=== PATIENT | female | born 1950 | race Asian ===

== ENCOUNTER 2019-03-28 01:02 | Inpatient (IN) | payer OTHER ==
[~2019-03-28] VITALS: Ht 165.1 cm; Wt 68.5 kg
[2019-03-28 01:02] VITALS: BP 147/74
--- NOTE | 2019-03-28 01:02 | NUR ---
68 y/o female biba c/o sob x 30mins. lung sounds are wheezing throughout, productive cough, labored and even breathing. vss. tripoding. heart sounds s1s2 present. pacemaker. a & o x4. on bipap.spo2 100% on bipap. 2 words sentences when getting out of breathe. nka. pmh: htn, copd, asthma, prediabetic, pacemaker.
[2019-03-28] MEDS ORDERED: BLOOD GLUCOSE MONITORING 1 DEV DEV FS STA (01:11)
[2019-03-28] MEDS ORDERED: NACL 0.9% 0 ML IV STA (01:11)
--- NOTE | 2019-03-28 01:13 | NUR ---
placed on bipap 10/5, BUR 12, 40%, tolerating well, spo2 100%, HR 67, Dr. Kennedy aware.
--- NOTE | 2019-03-28 01:30 | NUR ---
EKG PERFORMED AT BEDSIDE
[2019-03-28 02:06] LABS: HEMATOCRIT 45.5 % (36-48); HEMOGLOBIN 14.6 g/dL (12.0-16.0); MEAN CORPUSCULAR HEMOGLOBIN 28 pg (27-31); MEAN CORPUSCULAR HGB CONC 32 g/dL (33-37); MEAN CORPUSCULAR VOLUME 88.2 fL (80-94); PLATELET COUNT (AUTO) 224 K/uL (140-450); RED BLOOD CELL COUNT(AUTO) 5.16 MIL/uL (4.20-5.40); RED CELL DISTRIBUTION WIDTH 14.2 % (11.6-13.7); WHITE BLOOD COUNT (AUTO) 7.2 K/uL (4.8-10.8)
[2019-03-28 02:16] LABS: APPEARANCE,URINE CLEAR (CLEAR); BILIRUBIN,URINE NEGATIVE (NEGATIVE); BLOOD, URINE NEGATIVE (NEGATIVE); COLOR,URINE YELLOW (YELLOW); LEUKOCYTE ESTERASE ,URINE NEGATIVE (NEGATIVE); NITRITE, URINE NEGATIVE (NEGATIVE); UGLUCOSE NEGATIVE (NEGATIVE)
[2019-03-28 02:26] LABS: PROTHROMBIN TIME 8.8 secs (10.8-13.4)
[2019-03-28 02:28] LABS: ALBUMIN 4.1 g/dL (3.4-5.0); ANION GAP 16.2 (8-16); CARBON DIOXIDE 27.5 mmol/L (21-32); CREATININE 0.9 mg/dL (0.6-1.3); POTASSIUM 3.7 mmol/L (3.5-5.1); TOTAL BILIRUBIN 0.4 mg/dL (0.0-1.0)
[2019-03-28 02:29] LABS: EOSINOPHILS % (MANUAL) 16 % (0-4); LYMPHOCYTES % (MANUAL) 26 % (20-46); MONOCYTES % (MANUAL) 6 % (5-12)
[2019-03-28] MEDS ORDERED: ALBU1.25 NEB (02:37)
[2019-03-28] MEDS ORDERED: LOSA100T51 PO (02:37)
[2019-03-28] MEDS ORDERED: AMLO5TAB PO (02:37)
[2019-03-28] MEDS ORDERED: CARV12.5 PO (02:37)
[2019-03-28] MEDS ORDERED: ASPI-1718 PO (02:37)
[2019-03-28] MEDS ORDERED: ALBUTEROL 0.083% 2.5 MG/3 ML NEBU INH ONE (04:20)
[2019-03-28] MEDS ORDERED: MAG SULF 2000 MG/WATER PREMIX 50 ML IV ONE (04:20)
[2019-03-28] MEDS ORDERED: DEXAMETHASONE 10 MG/ML VIAL IVP ONE (04:20)
[2019-03-28] MEDS ORDERED: ONDANSETRON 4 MG/2 ML VIAL IVP PRN (04:55)
[2019-03-28] MEDS ORDERED: DEXTROSE 50% 50 ML SYR IVP PRN (05:45)
[2019-03-28] MEDS ORDERED: ALBUTEROL SULFATE/IPRATROPIU 3 ML SOL IH PRN (05:45)
--- NOTE | 2019-03-28 05:55 | NUR ---
Patient will be admitted to care of dr. negro. Admited to tele. Will go to room 123b. Belongings list completed. Report to reji childress.
[2019-03-28 06:05] VITALS: BP 128/71
--- NOTE | 2019-03-28 06:05 | NUR ---
BROUGHT IN FROM THE [facility]IA [facility] WITH AN ADMITTING DIAGNOSIS OF COPD EXACERBATION,RESPIRATORY FAILURE UNDER THE SERVICE OF . PLACED IN ROOM 123-B. PT. IS ALERT, ORIENTED. AFEBRILE, NOT IN ACUTE DISTRESS. DENIES PAIN AND VERBALIZED RELIEF OF SOB. SALINE LOCK TO THE RIGHT FA # 20 INTACT. SAO2=95% ON ROOM AIR. SINUS RHYTHM WITH 1 DEGREE AV BLOCK @ 60'S ON THE MONITOR. VS STABLE, WILL CONTINUE TO MONITOR. NEEDS ATTENDED.
[2019-03-28] MEDS: NACL 0.9% 1,000 ML IV SCH (06:12)
[2019-03-28] MEDS: BLOOD GLUCOSE MONITORING 1 DEV DEV FS SCH ×4 (06:28→21:17)
--- NOTE | 2019-03-28 06:28 | NUR ---
FINGERSTICK BLOOD SUGAR QIXGB=[id number]. NO INSULIN COVERAGE NEEDED.
[2019-03-28] MEDS: ALBUTEROL SULFATE/IPRATROPIU 3 ML SOL IH SCH ×3 (06:50→18:44)
--- NOTE | 2019-03-28 06:55 | NUR ---
BREATHING TREATMENT BEING GIVEN BY RT. MRSA SWAB COLLECTED AND SENT TO THE LAB.
--- NOTE | 2019-03-28 07:23 | NUR ---
ENDORSED CARE TO INGRIS PANCHAL.
--- NOTE | 2019-03-28 07:30 | NUR ---
RECEIVED REPORT FROM ARMINDA VILLATORO. PATIENT IS A NEW ADMIT. PATIENT IS AWAKE, ALERT AND ORIENTED X4. IV INTACT AND PATENT TO RIGHT FOREARM WITH IV NS 50ML/HR. CARE PLAN DISCUSSED WITH PATIENT. BED IN LOW POSITION. SAFETY MEASURES IN PLACE. CALL LIGHT WITHIN REACH. WILL CONTINUE TO MONITOR.
[2019-03-28 08:00] VITALS: BP 129/76
[2019-03-28 08:25] LABS: CHOL/HDL RATIO 5.9 (1-4.5); MAGNESIUM 1.8 mg/dL (1.8-2.4); PHOSPHORUS 4.5 mg/dL (2.5-4.9); THYROID STIMULATING HORMONE 3.96 uIU/mL (0.34-3.74)
[2019-03-28 08:56] LABS: BARBITURATE, URINE NEG. ng/ml (NEG <=200); BENZODIAZEPINE, URINE NEG. ng/mL (NEG <=200); CANNABINOID, URINE NEG. ng/mL (NEG <=50); COCAINE, URINE NEG. ng/mL (NEG <=300); OPIATE, URINE NEG. ng/mL (NEG <=2000); PHENCYCLIDINE SCREEN,URINE NEG. ng/mL (NEG <=25)
[2019-03-28] MEDS ORDERED: methylPREDNISolone SS 125 MG/2 ML VIAL IVP SCH (09:00)
[2019-03-28] MEDS ORDERED: NON-FORMULARY ITEM (Losartan Potassium 1 TAB) PO SCH (09:00)
[2019-03-28] MEDS: LOSARTAN 50 MG TAB PO SCH (09:33)
[2019-03-28] MEDS: amLODIPine 5 MG TAB PO SCH ×2 (09:34→21:12)
[2019-03-28] MEDS: DOCUSATE SODIUM 100 MG GELCAP PO SCH ×2 (09:34→21:12)
[2019-03-28] MEDS: CARVEDILOL 12.5 MG TAB PO SCH ×2 (09:34→21:11)
[2019-03-28] MEDS: ASPIRIN 81 MG TAB.CHEW PO SCH (09:34)
[2019-03-28] MEDS: LEVOFLOXACIN 750 MG/D5W PREMIX 150 ML IV SCH (09:35)
--- NOTE | 2019-03-28 09:38 | NUR ---
AM MEDICATIONS GIVEN. PATIENT IS ALERT, AWAKE AND ORIENTED X4. O2 SAT 96% ROOM AIR. IV INTACT AND PATENT TO RIGHT FOREARM WITH IVF NS INFUSING AT 50ML/HR. NO S/S OF DISTRESS NOTED AT THIS TIME. CALL LIGHT WITHIN REACH.
[2019-03-28] MEDS: INSULIN LISPRO SLIDING SCALE 100 UNITS/ML VIAL SUBQ PRN ×3 (11:29→21:15)
--- NOTE | 2019-03-28 11:33 | NUR ---
DR. ESPINOZA AT BEDSIDE.
[2019-03-28 12:00] VITALS: BP 130/75
--- NOTE | 2019-03-28 13:30 | NUR ---
PATIENT IS STILL HAVING LUNCH. ALERT AND ORIENTED X4. NO S/S OF DISTRESS NOTED. PATIENT'S 2 OF ALBUTEROL INHALER WAS WITH PATIENT AND NOW KEPT IN PHARMACY UNTIL DISCHARGE. PATIENT VERBALIZED UNDERSTANDING.
--- NOTE | 2019-03-28 14:00 | NUR ---
ATTEMPTED INTERROGATING FOR 2X PT'S PACEMAKER USING [facility] DEV[facility], PHAM LIGHT SHOWN, STATING PT'S PACEMAKER DOES NOT MATCH THE [employer] DEVICE. PT'S PACEMAKER INFO CARD SHOWED [employer]. DR. ESPINOZA NOTIFIED AND STATED HE WILL THE COMPANY.
--- NOTE | 2019-03-28 14:35 | NUR ---
RECEIVED A PHONE CALL FROM [employer] PACEMAKER [employer] IN REGARDS TO PATIENT'S PACEMAKER. SPOKE WITH JULIEN, STATED THEY WILL BE ABLE TO SEND SOMEONE TO CHECK PATIENT'S PACEMAKER TOMORROW FRIDAY.
[2019-03-28 16:00] VITALS: BP 130/81
--- NOTE | 2019-03-28 16:32 | NUR ---
PATIENT IS ALERT AND ORIENTED X4. PT AMBULATED TO THE BATHROOM WITH STANDBY ASSIST. PT ABLE TO MAKE NEEDS KNOWN. NO S/S OF DISTRESS NOTED. VS STABLE. IV INTACT AND PATENT TO RIGHT FOREARM WITH IVF NS INFUSING @50ML/HR. TOLERATING WELL. CALL LIGHT WITHIN REACH.
--- NOTE | 2019-03-28 19:02 | NUR ---
PATIENT EATING DINNER. PT IN STABLE CONDITION. WILL ENDORSE CONTINUITY OF CARE TO NIGHT NURSE.
--- NOTE | 2019-03-28 19:31 | NUR ---
RECEIVED BEDSIDE REPORT FROM DAY SHIFT NURSE. PATIENT IS AWAKE, ALERT, AND COOPERATIVE. RESPIRATION EVEN UNLABORED ON ROOM AIR. NO DISTRESS NOTED. SKIN IS WARM AND DRY. IV PATENT AND INTACT. PLAN OF CARE WAS DISCUSSED. ALL SAFETY MEASURES IN PLACE. BED IS AT LOW POSITION. CALL LIGHT WITHIN REACH AND VERBALIZES ITS USE. WILL CONTINUE TO MONITOR.
[2019-03-28 20:00] VITALS: BP 154/79
--- NOTE | 2019-03-28 20:20 | NUR ---
INITIAL ASSESSMENT DONE. VITALS WERE TAKEN. PATIENT IN STABLE CONDITION. NO DISTRESS NOTED. WILL CONTINUE TO MONITOR.
[2019-03-28] MEDS: methylPREDNISolone SS 125 MG/2 ML VIAL IVP SCH (21:12)
--- NOTE | 2019-03-28 21:40 | NUR ---
ALL SCHEDULED MEDS WERE GIVEN PER ORDER. NO DISTRESS NOTED. WILL CONTINUE TO MONITOR.
--- NOTE | 2019-03-28 23:00 | NUR ---
PATIENT REQUESTED BIPAP DUE TO HER SLEEP APNEA. ORDER VERIFIED. RT PLACED PATIENT IN BIPAP. WILL CONTINUE TO MONITOR.
[2019-03-29] VITALS: BP 132/73
--- NOTE | 2019-03-29 00:15 | NUR ---
VITALS WERE TAKEN. PATIENT IN STABLE CONDITION. NO DISTRESS NOTED. WILL CONTINUE TO MONITOR.
[2019-03-29] MEDS: NACL 0.9% 1,000 ML IV SCH ×3 (00:58→22:42)
--- NOTE | 2019-03-29 02:32 | NUR ---
PATIENT SLEEPING RESPIRATION EVEN UNLABORED ON ROOM AIR. NO DISTRESS NOTED. WILL CONTINUE TO MONITOR. Addendum: 03/29/19 at 0233 by Isabel Swanson RN CORRECTED PATIENT SLEEPING RESPIRATION EVEN UNLABORED ON BIPAP NO DISTRESS NOTED. WILL CONTINUE TO MONITOR.
[2019-03-29 04:00] VITALS: BP 125/75
--- NOTE | 2019-03-29 04:32 | NUR ---
VITALS WERE TAKEN. PATIENT IN STABLE CONDITION. NO DISTRESS NOTED. WILL CONTINUE TO MONITOR.
[2019-03-29] MEDS: ALBUTEROL SULFATE/IPRATROPIU 3 ML SOL IH SCH ×3 (06:22→19:24)
--- NOTE | 2019-03-29 06:22 | NUR ---
REC'D PT ON THAD V60 CPAP 5 FIO2 28% ALARMS ON AND AUDIBLE AND AMBU BAG AT [facility] AND CPAP IS PLUGGED INTO RED OUTLET, I\L TX GIVEN WITH DUONEB 3ML WITH NO ADVERSE REACTION POST TX B\S ARE CLEAR BILATERALLY PT IS SLEEPING WITH NO SIGNS OF DISTRESS NOTED PT NOW WANTS CPAP OFF AND ON ROOM AIR
[2019-03-29] MEDS: BLOOD GLUCOSE MONITORING 1 DEV DEV FS SCH ×4 (06:31→21:15)
[2019-03-29] MEDS: INSULIN LISPRO SLIDING SCALE 100 UNITS/ML VIAL SUBQ PRN ×4 (06:31→20:46)
--- NOTE | 2019-03-29 07:15 | NUR ---
RECEIVED REPORT FROM NIGHT NURSE. PATIENT IS ALERT, AWAKE AND ORIENTED X4. AMBULATED TO THE RESTROOM. NO S/S OF DISTRESS NOTED. PLANS OF CARE DISCUSSED. IV INTACT AND PATENT TO RIGHT FOREARM. CALL LIGHT WITHIN REACH.
[2019-03-29 08:00] VITALS: BP 133/76
[2019-03-29 08:16] LABS: BASOPHILS % (AUTO) 0.1 % (0.0-2.0); HEMATOCRIT 43.3 % (36-48); HEMOGLOBIN 13.7 g/dL (12.0-16.0); LYMPHOCYTES # (AUTO) 1.5 K/uL (2.5-16.5); LYMPHOCYTES % (AUTO) 11.5 % (20.5-51.1); MEAN CORPUSCULAR HEMOGLOBIN 28 pg (27-31); MEAN CORPUSCULAR HGB CONC 32 g/dL (33-37); MEAN CORPUSCULAR VOLUME 88.1 fL (80-94); MONOCYTES # (AUTO) 0.3 K/uL (0.8-1.0); MONOCYTES % (AUTO) 2.5 % (1.7-9.3); NEUTROPHILS # (AUTO) 11.5 K/uL (1.8-7.7); NEUTROPHILS % (AUTO) 85.9 % (42.2-75.2); PLATELET COUNT (AUTO) 213 K/uL (140-450); RED BLOOD CELL COUNT(AUTO) 4.92 MIL/uL (4.20-5.40); RED CELL DISTRIBUTION WIDTH 14.4 % (11.6-13.7); WHITE BLOOD COUNT (AUTO) 13.4 K/uL (4.8-10.8)
--- NOTE | 2019-03-29 08:18 | NUR ---
PATIENT HAS BEEN SCREENED AND CATEGORIZED MODERATE NUTRITION RISK. PATIENT WILL BE SEEN WITHIN 3-5 DAYS OF ADMISSION. 03/30/19 04/01/[address]
[2019-03-29 08:29] LABS: ANION GAP 16.6 (8-16); CARBON DIOXIDE 24.1 mmol/L (21-32); CREATININE 1.1 mg/dL (0.6-1.3); POTASSIUM 3.7 mmol/L (3.5-5.1)
[2019-03-29 08:38] LABS: PHOSPHORUS 3.6 mg/dL (2.5-4.9)
[2019-03-29] MEDS: methylPREDNISolone SS 125 MG/2 ML VIAL IVP SCH ×2 (09:01→20:37)
[2019-03-29] MEDS: LEVOFLOXACIN 750 MG/D5W PREMIX 150 ML IV SCH (09:01)
[2019-03-29] MEDS: DOCUSATE SODIUM 100 MG GELCAP PO SCH ×2 (09:02→20:37)
[2019-03-29] MEDS: ASPIRIN 81 MG TAB.CHEW PO SCH (09:02)
[2019-03-29] MEDS: CARVEDILOL 12.5 MG TAB PO SCH ×2 (09:02→20:42)
[2019-03-29] MEDS: LOSARTAN 50 MG TAB PO SCH (09:02)
[2019-03-29] MEDS: amLODIPine 5 MG TAB PO SCH ×2 (09:03→20:42)
--- NOTE | 2019-03-29 09:15 | NUR ---
PATIENT ALERT AND ORIENTED X4. PATIENT ABLE TO MAKE NEEDS KNOWN. NO S/S OF DISTRESS NOTED. AM MEDICATIONS GIVEN. NO SOB NOTED. PATIENT IS AWAKE WITH HOB ELEVATED. CALL LIGHT WITHIN REACH.
[2019-03-29] MEDS ORDERED: IBUPROFEN 200 MG TAB PO SCH (10:00)
--- NOTE | 2019-03-29 10:47 | NUR ---
DC PLANN[age] YRS OLD WAS ADMITTED FROM HOME WITH A DX OF COPD EXACERBATION AND RESP FAILURE. PT HAS A HX OF COPD, HTN, CAD S/P PACE MAKER PLACEMENT AND DM . PT USED O2 AT HOME WELL CPAP AT NIGHT AND THE MACHINE HAS BEEN BROKEN AND NOT BEEN USING THE PAST 2-3 MONTH. CXR SHOWED MILD PERIPHERAL ATELECTASIS/ SCARING IN THE LLL. ADMINISTERED IV ABX LEVAQUIN ,SOLU-MEDROL IV, RT PROTOCOL, AND PLACE PT ON BIPAP , PULMO CONSULT , INTERROGATE THE PACEMAKER. DC PLAN TO GO HOME WHEN STABLE AND F/U WITH PCP . CM WILL F/U TO REPLACE WITH HOME CPAP.
--- NOTE | 2019-03-29 11:15 | NUR ---
PATIENT IS SITTING ON THE SIDE OF THE BED. PATIENT'S FRIENDS AT BEDSIDE. NO S/S OF DISTRESS NOTED.
[2019-03-29 12:00] VITALS: BP 136/68
--- NOTE | 2019-03-29 13:10 | NUR ---
2 POLICE AUTHORITIES SPEAKING WITH PATIENT IN REGARDS TO A CONCERN ABOUT "SOMEONE REPORTING PATIENT OF POSSIBLE HARM TO OTHERS."
--- NOTE | 2019-03-29 13:20 | NUR ---
PATIENT IS STABLE. NO S/S OF DISTRESS NOTED. THE POLICE AUTHORITIES LEFT.
--- NOTE | 2019-03-29 14:12 | NUR ---
CAKE KNOCKER Assessment/Discharge Plan Name: Radha Lundberg Home Relationship: friend/roommate Pre-Admission Living Arrangements: Lives with Other Other: Radha Lundberg Prior ADL Independent Current Home Health Name/Tel: N/A Current DME/02 Name/Tel: walker, cane, c-pap (c-pap does work) Current Hospice Name/Tel: N/A Current Dialysis Name/Tel: N/A Healthcare Decision Maker: Patient Information Taught: Community Resources Person Taught: Patient Teaching Tools: Community Resources Verbal Factors Affecting Learning: None Participation Level: Active Evaluation: Gestures Understanding Verbalizes Understanding Educator: FARTUN Esquivel Discipline: Case Mgt/Social Svcs Tentative Discharge Plan Summary: Patient is a 68 year old female admitted for COPD exacerbation and respiratory failure. I met with patient at bedside. Patient alert and oriented x4. Patient lives at home with her friend/roommate Radha Lundberg and plans to return home upon discharge. Patient stated she went to [place] to visit her son and his because she was going to have surgery. She wanted her son to assist her with ADLs after surgery. However, she told me that her daughter in law dislikes her and is trying to isolate her son. She told me "If I could shoot them I would". I asked her if she had a plan. She replied "No" and stated she was not capable of hurting them. She added she could not hurt a fly and was Gnosticism. She admitted she had a gun at home. Prior to making these statements she told me she did not want her family members' contact information on her medical chart and would prefer for us to contact her friend/roommate Radha Lundberg. She stated she is not planning to go to [place] ever again. I contacted [place] [employer] department to inquire if the statements she had made her criminal threats. Dump Truck Driver Simone Mota from [employer] [employer] came to interview patient. Per Officer Nakul, patient's statements are not considered criminal threats. Patient denied alcohol/substance abuse. She refused to discuss hx of mental health. She told me [employer] was the company that provided her with c-pap. Patient's pcp is Aureliano Rock . Patient's medication is delivered to her home. Sales Project Coordinator and/or Games Manager will follow up as needed. Signature: FARTUN Esquivel Date: Mar 29, 2019
--- NOTE | 2019-03-29 15:00 | NUR ---
PATIENT [id number]. NO S/S OF DISTRESS NOTED. PATIENT ABLE TO MAKE NEEDS KNOWN. IV INTACT AND PATENT TO RFA. CALL LIGHT WITHIN REACH.
[2019-03-29 16:00] VITALS: BP 128/77
--- NOTE | 2019-03-29 17:00 | NUR ---
PATIENT [id number]. NO S/S OF DISTRESS NOTED. PATIENT ABLE TO MAKE NEEDS KNOWN. IV INTACT AND PATENT TO RFA. CALL LIGHT WITHIN REACH.
--- NOTE | 2019-03-29 19:00 | NUR ---
PATIENT IN STABLE CONDITION. WILL ENDORSE TO NIGHT NURSE FOR CONTINUITY OF CARE.
[2019-03-29 20:00] VITALS: BP 145/78
--- NOTE | 2019-03-29 20:05 | NUR ---
INITIAL ASSESSMENT DONE. NO DISTRESS NOTED. WILL CONTINUE TO MONITOR.
[2019-03-29] MEDS ORDERED: APAP/BUTAL/CAFF 325/50/40 MG 1 TAB PO PRN (20:10)
--- NOTE | 2019-03-29 20:45 | NUR ---
ALL SCHEDULED MEDS WERE GIVEN PER ORDER. NO ASE NOTED. WILL CONTINUE TO MONITOR.
--- NOTE | 2019-03-29 22:03 | NUR ---
PATIENT COMPLAINED OF HEADACHE 5/10. PRN PAIN MED ADMINISTERED PER ORDER. WILL CONTINUE TO MONITOR.
--- NOTE | 2019-03-29 23:11 | NUR ---
2300 PLACED PATIENT ON CPAP OF 5CM. PATIENT TOLERATES MASK.
[2019-03-30] VITALS: BP 137/75
--- NOTE | 2019-03-30 00:12 | NUR ---
VITALS WERE TAKEN. PATIENT IN STABLE CONDITION. NO DISTRESS NOTED. WILL CONTINUE TO MONITOR.
--- NOTE | 2019-03-30 02:30 | NUR ---
CHECKED PATIENT. PATIENT SLEEPING RESPIRATION EVEN UNLABORED ON BIPAP. NO DISTRESS NOTED. WILL CONTINUE TO MONITOR.
[2019-03-30 04:00] VITALS: BP 150/83
--- NOTE | 2019-03-30 04:05 | NUR ---
VITALS WERE TAKEN. PATIENT IN STABLE CONDITION. NO DISTRESS NOTED. WILL CONTINUE TO MONITOR.
--- NOTE | 2019-03-30 05:39 | NUR ---
PATIENT TAKEN OFF CPAP AND PLACED ON 2LNC. PATIENT WEARS 2LNC AT HOME
[2019-03-30] MEDS: BLOOD GLUCOSE MONITORING 1 DEV DEV FS SCH ×4 (06:31→20:58)
[2019-03-30] MEDS: INSULIN LISPRO SLIDING SCALE 100 UNITS/ML VIAL SUBQ PRN ×4 (06:32→21:12)
[2019-03-30] MEDS: ALBUTEROL SULFATE/IPRATROPIU 3 ML SOL IH SCH ×3 (07:07→19:08)
--- NOTE | 2019-03-30 07:19 | NUR ---
ENDORSED PATIENT TO DAY SHIFT NURSE. PATIENT IN STABLE CONDITION.
--- NOTE | 2019-03-30 07:25 | NUR ---
RECEIVED REPORT FROM MOLD INSERT CHANGER NURSE FOR CONTINUATION OF CARE. PATIENT IS RESTING IN BED, RECEIVING BREATHING TREATMENT. BED IN LOW POSITION, CALL LIGHT ON AND WITHIN REACH.
[2019-03-30 08:00] VITALS: BP 131/79
[2019-03-30 08:08] LABS: BASOPHILS % (AUTO) 0.1 % (0.0-2.0); HEMATOCRIT 39.3 % (36-48); HEMOGLOBIN 12.7 g/dL (12.0-16.0); LYMPHOCYTES # (AUTO) 1.2 K/uL (2.5-16.5); LYMPHOCYTES % (AUTO) 8.6 % (20.5-51.1); MEAN CORPUSCULAR HEMOGLOBIN 28 pg (27-31); MEAN CORPUSCULAR HGB CONC 32 g/dL (33-37); MEAN CORPUSCULAR VOLUME 87.4 fL (80-94); MONOCYTES # (AUTO) 0.5 K/uL (0.8-1.0); MONOCYTES % (AUTO) 3.2 % (1.7-9.3); NEUTROPHILS # (AUTO) 12.6 K/uL (1.8-7.7); NEUTROPHILS % (AUTO) 88.1 % (42.2-75.2); PLATELET COUNT (AUTO) 197 K/uL (140-450); RED CELL DISTRIBUTION WIDTH 14.2 % (11.6-13.7); WHITE BLOOD COUNT (AUTO) 14.3 K/uL (4.8-10.8)
[2019-03-30 08:11] LABS: ANION GAP 13.5 (8-16); CARBON DIOXIDE 25.5 mmol/L (21-32); CREATININE 0.8 mg/dL (0.6-1.3)
[2019-03-30] MEDS: FLUTICASONE NASAL 50 MCG/ACTUATION 16 GM BTL NS SCH (09:00)
[2019-03-30] MEDS: DOCUSATE SODIUM 100 MG GELCAP PO SCH ×2 (09:46→21:06)
[2019-03-30] MEDS: CARVEDILOL 12.5 MG TAB PO SCH ×2 (09:47→21:06)
[2019-03-30] MEDS: amLODIPine 5 MG TAB PO SCH ×2 (09:47→21:06)
[2019-03-30] MEDS: methylPREDNISolone SS 125 MG/2 ML VIAL IVP SCH (09:48)
[2019-03-30] MEDS: ASPIRIN 81 MG TAB.CHEW PO SCH (09:48)
[2019-03-30] MEDS: LOSARTAN 50 MG TAB PO SCH (09:48)
[2019-03-30] MEDS: LEVOFLOXACIN 750 MG/D5W PREMIX 150 ML IV SCH (09:49)
[2019-03-30] MEDS ORDERED: VANCOMYCIN PER PHARMACY MC PRN (10:00)
--- NOTE | 2019-03-30 10:00 | NUR ---
PATIENT IS RESTING IN BED, MEDICATIONS TOLERATED WELL, PATIENT REQUESTING TO TAKE A SHOWER, SUPPLIES TO BE PREPARED AND DISCONNECTED FROM IV. DENIES PAIN AT THIS TIME. WILL CONTINUE TO MONITOR.
[2019-03-30 10:56] LABS: PHOSPHORUS 3.7 mg/dL (2.5-4.9)
[2019-03-30 12:00] VITALS: BP 121/85
--- NOTE | 2019-03-30 12:30 | NUR ---
PATIENT IS RESTING IN BED, OBSERVED CHEST RISE AND FALL, RECEIVING LEVAQUIN, DENIES PAIN AT THIS TIME. BED IN LOW POSITION, CALL LIGHT ON AND WITHIN REACH. WILL CONTINUE TO MONITOR.
--- NOTE | 2019-03-30 15:00 | NUR ---
PATIENT IS RESTING IN BED, PATIENT WAS ABLE TO SUCCESSFULLY TAKE A SHOWER SUCCESSFULLY, TOLERATED WELL. BLOOD SUGAR WAS CHECKED, INSULIN HELD DUE TO REFUSAL BY PATIENT. WILL CONTINUE TO MONITOR. BED IN LOW POSITION, CALL LIT ON AND WITHIN REACH.
[2019-03-30 16:00] VITALS: BP 129/69
--- NOTE | 2019-03-30 17:30 | NUR ---
CALL LIGHT ON AND WITHIN REACH, PATIENT DENIES PAIN, FAMILY AT BEDSIDE. WILL CONTINUE TO MONITOR.
--- NOTE | 2019-03-30 19:25 | NUR ---
REPORT GIVEN TO MANAGER SAS NURSE FRO CONTINUITY OF CARE.
[2019-03-30 19:57] LABS: MAGNESIUM 2.2 mg/dL (1.8-2.4)
[2019-03-30 20:00] VITALS: BP 117/59
[2019-03-30] MEDS: methylPREDNISolone SS 40 MG/ML VIAL IVP SCH (21:06)
--- NOTE | 2019-03-30 21:06 | NUR ---
GIVEN SOLU MEDROL, COLACE, COREG, NORVASC MD ORDERED. PT TOLERATED WELL.
--- NOTE | 2019-03-30 22:45 | NUR ---
NO ACUTE DISTRESS NOTED. WILL CONTINUE TO MONITOR.
[2019-03-31] VITALS: BP 141/74
[2019-03-31] MEDS ORDERED: VANCOMYCIN 1GM/DEXT 5% PREMIX 200 ML IV SCH
[2019-03-31] MEDS ORDERED: VANCOMYCIN 1,000 MG VIAL ONE (00:05)
--- NOTE | 2019-03-31 00:15 | NUR ---
GIVEN VANCOMYCIN MD ORDERED. PT TOLERATED WELL.
--- NOTE | 2019-03-31 02:27 | NUR ---
PT SLEEPING IN BED. NO ACUTE DISTRESS NOTED.
[2019-03-31 04:00] VITALS: BP 150/80
--- NOTE | 2019-03-31 04:04 | NUR ---
VS CHECKED, WITHIN PT'S BASELINE. BED IN LOW POSITION, CALL LIGHT WITHIN REACH.
[2019-03-31] MEDS: NACL 0.9% 1,000 ML IV SCH (05:00)
[2019-03-31] MEDS: INSULIN LISPRO SLIDING SCALE 100 UNITS/ML VIAL SUBQ PRN ×2 (06:02→17:00)
[2019-03-31] MEDS: BLOOD GLUCOSE MONITORING 1 DEV DEV FS SCH ×3 (06:02→16:42)
--- NOTE | 2019-03-31 07:04 | NUR ---
PT IN STABLE CONDITION, WILL ENDORSE TO DAY SHIFT NURSE FOR CONTINUOUS CARE.
--- NOTE | 2019-03-31 07:20 | NUR ---
RECEIVED REPORT FROM FOOD HANDLER NURSE AT BEDSIDE. PT IS AWAKE AND ORIENTED. NO SIGNS OF DISTRESS. PT HAS BPAP RATE 19. PT O2 SAT IS 97%. PT HAS IV ON RIGHT FOREARM 20G. PT IS ON FULL CODE. SKIN INTACT AND ON CCHO DIET. WILL CONTINUE MONITORING
[2019-03-31] MEDS: ALBUTEROL SULFATE/IPRATROPIU 3 ML SOL IH SCH (07:22)
--- NOTE | 2019-03-31 07:38 | NUR ---
PT IS HAVING BREATHING TREATMENT NOW.
[2019-03-31 08:00] VITALS: BP 149/53
--- NOTE | 2019-03-31 09:10 | NUR ---
PT IS AWAKE AND ORIENTED. SCHEDULED MEDS GIVEN. PO MEDS CRUSHED AND MIXED WITH APPLE SAUCE. PT TOLERATED WELL. WILL CONTINUE MONITORING
[2019-03-31] MEDS: amLODIPine 5 MG TAB PO SCH (09:35)
[2019-03-31] MEDS: DOCUSATE SODIUM 100 MG GELCAP PO SCH (09:35)
[2019-03-31] MEDS: LOSARTAN 50 MG TAB PO SCH (09:36)
[2019-03-31] MEDS: ASPIRIN 81 MG TAB.CHEW PO SCH (09:36)
[2019-03-31] MEDS: CARVEDILOL 12.5 MG TAB PO SCH (09:37)
[2019-03-31] MEDS: LEVOFLOXACIN 750 MG/D5W PREMIX 150 ML IV SCH (09:38)
[2019-03-31] MEDS: methylPREDNISolone SS 40 MG/ML VIAL IVP SCH (09:49)
[2019-03-31] MEDS: FLUTICASONE NASAL 50 MCG/ACTUATION 16 GM BTL NS SCH (10:00)
[2019-03-31 10:41] LABS: HEMATOCRIT 39.4 % (36-48); HEMOGLOBIN 12.5 g/dL (12.0-16.0); LYMPHOCYTES # (AUTO) 1.9 K/uL (2.5-16.5); LYMPHOCYTES % (AUTO) 15.6 % (20.5-51.1); MEAN CORPUSCULAR HEMOGLOBIN 28 pg (27-31); MEAN CORPUSCULAR HGB CONC 32 g/dL (33-37); MEAN CORPUSCULAR VOLUME 88.4 fL (80-94); MONOCYTES # (AUTO) 0.9 K/uL (0.8-1.0); MONOCYTES % (AUTO) 7.4 % (1.7-9.3); NEUTROPHILS # (AUTO) 9.1 K/uL (1.8-7.7); PLATELET COUNT (AUTO) 183 K/uL (140-450); RED BLOOD CELL COUNT(AUTO) 4.45 MIL/uL (4.20-5.40); RED CELL DISTRIBUTION WIDTH 14.2 % (11.6-13.7); WHITE BLOOD COUNT (AUTO) 11.8 K/uL (4.8-10.8)
[2019-03-31] MEDS ORDERED: ALBUTEROL SULFATE/IPRATROPIU 3 ML SOL IH SCH (10:48)
[2019-03-31 10:54] LABS: ANION GAP 8.1 (8-16); CARBON DIOXIDE 29.3 mmol/L (21-32); CREATININE 0.8 mg/dL (0.6-1.3); POTASSIUM 3.4 mmol/L (3.5-5.1)
--- NOTE | 2019-03-31 11:10 | NUR ---
FREQUENT ROUNDING DONE. GAVE TEACHING TO PT REGARDING DEEP BREATHING EXERCISES. PT VERBALIZED UNDERSTANDING. WILL CONTINUE MONITORING
[2019-03-31 12:00] VITALS: BP 133/75
[2019-03-31] MEDS ORDERED: VANCOMYCIN HCL 750 MG in NACL 0.9% 250 ML IV SCH (12:00)
--- NOTE | 2019-03-31 12:10 | NUR ---
PT APPEARS STABLE, WITH NO SIGNS OF DISTRESS. SCHEDULED MEDS ADMINISTERED. EDUCATED PT REGARDING MEDS AND SIDE EFFECTS. PT VERBALIZED UNDERSTANDING. WILL CONTINUE MONITORING
--- NOTE | 2019-03-31 12:30 | NUR ---
PT TEACHINGS REGARDING DIABETES AND HYPERTENSION MANAGEMENT WERE GIVEN TO PT AND VERBALIZED UNDERSTANDING, CAREGIVER ON THE BEDSIDE AND WILL MONITOR PT
--- NOTE | 2019-03-31 13:00 | NUR ---
DR. ESPINOZA WAS INFORMED OF PT'S K LEVEL OF 3.4, MD SAID THAT HE WILL PLACE AN ORDER.
--- NOTE | 2019-03-31 13:41 | NUR ---
PELT SHEARER AT BEDSIDE NO PULMONARY DISTRESS NOTED WIRE DRAWING MACHINE OPERATOR TO ATTEMPT HHN THERAPY AT A LATER TIME
[2019-03-31] MEDS ORDERED: POTASSIUM CHLORIDE 20% 40 MEQ/15 ML UDC PO SCH (14:30)
[2019-03-31] MEDS ORDERED: POTASSIUM CHLORIDE 10 MEQ TABER PO SCH (14:30)
--- NOTE | 2019-03-31 14:40 | NUR ---
PT WAS GIVEN POTASSIUM CHLORIDE ELIXIR FOR THE K LEVEL OF 3.4.
[2019-03-31 16:00] VITALS: BP 153/79
--- NOTE | 2019-03-31 16:10 | NUR ---
PT WAS GIVEN EYE MEDICATION 2 DROPS ON THE LEFT EYE, TEACHING WAS GIVEN TO PT REGARDING EYE CARE AND VERBALIZED UNDERSTANDING.
[2019-03-31] MEDS ORDERED: POLYVINYL ALCOHOL 1.4% OP 15 ML SOL OP SCH (17:00)
--- NOTE | 2019-03-31 17:00 | NUR ---
PT WAS GIVEN INSULIN 6 UNITS ON THE ABDOMEN FOR THE BLOOD GLUCOSE OF 260. WILL MONITOR PT
[2019-03-31] MEDS ORDERED: ASCO1CAP75 PO (17:26)
[2019-03-31] MEDS ORDERED: LEVO750T2 PO (17:26)
[2019-03-31] MEDS ORDERED: INSU100S22 SUBQ (17:27)
[2019-03-31] MEDS ORDERED: INFLUENZA VACCINE QUAD 0.5 ML SYR IMVAC PRN (18:15)
[2019-03-31] MEDS ORDERED: PNEUMOCOCCAL VACCINE 23 MCG/0.5 ML VIAL IMVAC SCH (18:15)
--- NOTE | 2019-03-31 18:40 | NUR ---
PT IS FOR D/C. PT IS ALERT AND ORIENTED. DISCHARGE FORMS EXPLAINED TO PT AND SIGNED. IV AND ID BANDS REMOVED. IV CANNULA INTACT. PERSONAL BELONGING RETURNED BY SECURITY. HOME MEDS GIVEN FROM PHARMACY. Addendum: 03/31/19 at 1932 by Hattie Brown RN DISCHARGED PT TO HOME WITH CAREGIVER. DISCHARGE TEACHINGS AND INFORMATIONS REGARDING DIABETES AND HYPERTENSION MANAGEMENT WERE GIVEN AND PT VERBALIZED UNDERSTANDING. PT IS STABLE AT THIS TIME. DENIES SOB AND PAIN.
--- NOTE | 2019-03-31 18:40 | NUR ---
PT HAS GIVEN PNA VACCINE LAST 2016. PT REFUSED FLU VACCINE
[2019-03-31] MEDS ORDERED: methylPREDNISolone SS 40 MG/ML VIAL IVP SCH (21:00)
== END 2019-03-31 18:40 | disposition home or self-care (01) | DRG 189 ==
LOC: MED 01:02 → MTU 05:09
PROVIDERS: ADMIT General Practice; ATTEND General Practice
PROC: 5A09357 Assistance with Respiratory Ventilation, Less than 24 Consecutive Hours, Continuous Positive Airway Pressure (ICD-10-PCS; principal; 2019-03-28)
DX: J96.01 Acute respiratory failure with hypoxia (principal); J44.1 Chronic obstructive pulmonary disease with (acute) exacerbation; J45.901 Unspecified asthma with (acute) exacerbation; D68.59 Other primary thrombophilia; G47.33 Obstructive sleep apnea (adult) (pediatric); D72.829 Elevated white blood cell count, unspecified; E11.9 Type 2 diabetes mellitus without complications; E78.00 Pure hypercholesterolemia, unspecified; E78.5 Hyperlipidemia, unspecified; I10 Essential (primary) hypertension; E87.8 Other disorders of electrolyte and fluid balance, not elsewhere classified; B96.89 Other specified bacterial agents as the cause of diseases classified elsewhere; I25.10 Atherosclerotic heart disease of native coronary artery without angina pectoris; I25.2 Old myocardial infarction; Z87.891 Personal history of nicotine dependence; Z90.710 Acquired absence of both cervix and uterus; Z95.0 Presence of cardiac pacemaker; Z99.81 Dependence on supplemental oxygen; Z88.5 Allergy status to narcotic agent; Z88.8 Allergy status to other drugs, medicaments and biological substances
CPT/HCPCS: 36415; 36600; 71045; 80048; 80053; 80305; 81003; 82803; 82948; 83036; 83605; 83735; 83880; 84100; 84443; 84484; 85025; 85610; 85730; 87040; 87081; 87086; 93005; 94640; 94660; 96361; 96374; 99285; J1100; J1815; J1956; J2920; J2930; J3370; J3475; J7030; J7613; J7620; Q0092